=== PATIENT | female | born 1945 | race Caucasian/White ===

== ENCOUNTER 2016-11-10 16:57 | Emergency (ER) | payer MEDICARE ==
[2016-11-10] MEDS ORDERED: Ondansetron ODT 4 MG TAB ONE (17:22)
[2016-11-10] MEDS ORDERED: HYDROcodone/Acetaminophen 10/325 mg Tablet ONE (17:37)
--- NOTE | 2016-11-10 18:06 | CT ---
CT OF THE HEAD WITHOUT CONTRAST 11/10/16 COMPARISON: None. HISTORY: Fall. Head trauma. Pain. TECHNIQUE: Serial axial CT imaging at 5 mm intervals from vertex through skull base without contrast. Coronal a nd sagittal reformatted imaging obtained. FINDINGS: There is posterior superior midline scalp swelling with associated foci of subcutaneous gas, evidenc e for scalp laceration. The imaged paranasal sinuses and mastoid air cells are well aerated. There i s atherosclerotic calcification of the cavernous carotid arteries. There is no intracranial hemorrha ge, midline shift, mass effect or ventricular enlargement. IMPRESSION: Posterior superior midline scalp laceration with no associated calvarial fracture or intracranial he morrhage. POS: [facility]
--- NOTE | 2016-11-10 18:09 | CT ---
CERVICAL SPINE CT WITHOUT CONTRAST 11/10/16 COMPARISON: None. HISTORY: Fall, trauma, pain. TECHNIQUE: Serial axial CT imaging at 2.5 mm intervals from skull base through lung apices without contrast. Co haily and sagittal reformatted imaging obtained. FINDINGS: The imaged lung apices appear grossly unremarkable. There is moderate degenerative change at the atlantoaxial interspace. The craniocervical junction ap pears intact. There is mild anterolisthesis at C3-4, C4-5 and C5-6 levels. There is prominent right sided facet hypertrophy at C2-3, C3-4, C4-5, and C5-6 and there is prominent facet hypertrophy on th e left at C2-3, C3-4, C4-5 and C6-7. There is no prevertebral soft tissue swelling. No acute fracture or evidence of dislocation is noted. 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 No acute fracture or dislocation noted. POS: [facility]
[2016-11-10] MEDS ORDERED: Bacitracin Zinc 1 Packet ONE (18:16)
== END 2016-11-10 18:30 | disposition home or self-care (01) ==
LOC: NAV ERS 16:57
DX: S06.0X0A Concussion without loss of consciousness, initial encounter (principal); S01.01XA Laceration without foreign body of scalp, initial encounter; E78.5 Hyperlipidemia, unspecified; I47.1 Supraventricular tachycardia; I10 Essential (primary) hypertension; Z79.82 Long term (current) use of aspirin; Z79.899 Other long term (current) drug therapy; W01.198A Fall on same level from slipping, tripping and stumbling with subsequent striking against other object, initial encounter
CPT/HCPCS: 12002; 70450; 72125; Q0162